=== PATIENT | male | born 1950 | race Caucasian/White ===

== ENCOUNTER 2019-10-14 18:48 | Emergency (ER) | payer MEDICARE, OTHER ==
[2019-10-14 19:01] VITALS: BP 141/61
--- NOTE | 2019-10-14 20:03 | ED Physician Documentation ---
PD HPI LOWER EXT INJURY - Stated complaint Stated Complaint: HEAD LAC - Chief complaint Chief Complaint: Laceration - History obtained from History obtained from: Patient - History of Present Illness PD HPI LOW EXT INJURY LOCATION: Other (69-year-old gentleman who is not up-to-date on tetanus was sitting on a short stool about a foot off the ground putting stuff away and the stool collapsed and he scraped his head on the table on the way down. He has no loss of consciousness. No headache. No nausea. Vision is fine. He is not confused at all. Not anticoagulated except for aspirin.) Where injury occurred: Home Timing - onset: Today Review of Systems Constitutional: reports: Reviewed and negative Throat: reports: Reviewed and negative Cardiac: reports: Reviewed and negative PD PAST MEDICAL HISTORY - Past Medical History Past Medical History: Yes Cardiovascular: Hypertension Respiratory: None Neuro: None Endocrine/Autoimmune: None GI: Colon polyps : Other HEENT: None Psych: None Musculoskeletal: Osteoarthritis Derm: None - Past Surgical History Past Surgical History: Yes General: Colonoscopy - Present Medications Home Medications: Ambulatory Orders Medication Instructions Recorded Confirmed Cholecalciferol (Vitamin D3) 1,000 units PO DAILY 08/15/14 08/15/14 [Vitamin D-3] Ciprofloxacin [Cipro] 500 mg PO DAILY 08/15/14 08/15/14 Lisinopril/Hydrochlorothiazide 1 tab PO DAILY 08/15/14 08/15/14 [Lisinopril-Hctz 20-25 mg Tab] Multivitamin [Multivitamins] 1 tab PO DAILY 08/15/14 08/15/14 Verapamil [Calan] 120 mg PO DAILY 08/15/14 08/15/14 metFORMIN [Glucophage] 500 mg PO DAILY 08/15/14 08/15/14 - Allergies Allergies/Adverse Reactions: Allergies Allergy/AdvReac Type Severity Reaction Status Date / Time No Known Drug Allergies Allergy Verified 08/15/14 08:08 - Social History Does the pt smoke?: No Smoking Status: Never smoker Does the pt drink ETOH?: No Does the pt have substance abuse?: No - Immunizations Immunizations are current?: No - POLST Patient has POLST: No PD ED PE NORMAL - Vitals Vital signs reviewed: Yes - General General: Alert and oriented X 3, No acute distress - HEENT HEENT: PERRL, EOMI, Other (There is 2 scrapes on the vertex of the scalp) - Neck Neck: Supple, no meningeal sign, No bony TTP - Neuro Neuro: Alert and oriented X 3, 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 We discussed CT imaging but I did not necessarily recommend it given the lack of significant symptoms and he is agreeable and understands signs and symptoms that would necessitate urgent reevaluation. Departure - Departure Disposition: 01 Home, Self Care Clinical Impression: Scalp abrasion Qualifiers: Encounter type: initial encounter Qualified Code(s): S00.01XA - Abrasion of scalp, initial encounter Condition: Good Record reviewed to determine appropriate education?: Yes Instructions: ED Abrasion Comments: If you develop headache, nausea, or other new or worrisome symptoms please return for reevaluation.
[2019-10-14] MEDS ORDERED: TETANUS/DIPHTHERIA/PERTUSSIS 0.5 ML SYRINGE IM ONE (20:17)
== END 2019-10-14 20:38 | disposition home or self-care (01) ==
LOC: ED 18:48
DX: S00.01XA Abrasion of scalp, initial encounter (principal); W22.03XA Walked into furniture, initial encounter; Y93.E9 Activity, other interior property and clothing maintenance; Y92.009 Unspecified place in unspecified non-institutional (private) residence as the place of occurrence of the external cause; I10 Essential (primary) hypertension
CPT/HCPCS: 90471; 99284

== ENCOUNTER 2023-12-31 19:07 | Outpatient (CLI) | payer MEDICARE, OTHER | END 2023-12-31 19:08 | disposition critical access hospital (66) | LOC: EMS 19:07 | DX: M54.9 Dorsalgia, unspecified (principal); M79.652 Pain in left thigh; M79.651 Pain in right thigh; M25.552 Pain in left hip; M25.551 Pain in right hip | CPT/HCPCS: A0425; A0429 ==

== ENCOUNTER 2023-12-31 19:40 | Emergency (ER) | payer MEDICARE, OTHER ==
--- NOTE | 2023-12-31 19:55 | ED Physician Documentation ---
PD HPI BACK PAIN - Stated complaint Stated Complaint: LOWER BACK PX - Chief complaint Chief Complaint: Back Pain - History obtained from History obtained from: Patient - Additional information Additional information: 73-year-old gentleman with history of type 2 diabetes and remote history of back issues necessitating physical therapy in a couple of months off of work "30 years ago." Over the last 3 days has developed low back pain. There is no injury. He has progressively lost function due to it. Pain is very mild at rest but if he tries to move his legs it is more severe and has developed right greater than left leg weakness. Denies numbness or saddle anesthesia. No incontinence of bowel or bladder. No fevers. PD PAST MEDICAL HISTORY - Past Medical History Cardiovascular: Hypertension Respiratory: None Neuro: None Endocrine/Autoimmune: None GI: Colon polyps : Other HEENT: None Psych: None Musculoskeletal: Osteoarthritis Derm: None - Past Surgical History Past Surgical History: Yes General: Colonoscopy - Present Medications Home Medications: Ambulatory Orders Medication Instructions Recorded Confirmed Cholecalciferol (Vitamin D3) 1,000 units PO DAILY 08/15/14 08/15/14 [Vitamin D-3] Ciprofloxacin [Cipro] 500 mg PO DAILY 08/15/14 08/15/14 Lisinopril/Hydrochlorothiazide 1 tab PO DAILY 08/15/14 08/15/14 [Lisinopril-Hctz 20-25 mg Tab] Multivitamin [Multivitamins] 1 tab PO DAILY 08/15/14 08/15/14 Verapamil [Calan] 120 mg PO DAILY 08/15/14 08/15/14 metFORMIN [Glucophage] 500 mg PO DAILY 08/15/14 08/15/14 - Allergies Allergies/Adverse Reactions: Allergies Allergy/AdvReac Type Severity Reaction Status Date / Time No Known Drug Allergies Allergy Verified 08/15/14 08:08 - Social History Does the pt smoke?: No Smoking Status: Never smoker Does the pt drink ETOH?: No Does the pt have substance abuse?: No - Immunizations Immunizations are current?: No - POLST Patient has POLST: No PD ED PE NORMAL - Vitals Vital signs reviewed: Yes - General General: Alert and oriented X 3, No acute distress - HEENT HEENT: PERRL, EOMI - Neck Neck: No bony TTP - Cardiac Cardiac: RRR, No murmur - Respiratory Respiratory: No respiratory distress, Clear bilaterally - Abdomen Abdomen: Normal bowel sounds, Soft, Non tender - Back Back: No spinal TTP - Derm Derm: Normal color, Warm and dry - Extremities Extremities: Other (He has a lot of pain with flexion of either leg at the hip but otherwise without limitation, the patient has equal and normal Achilles and patellar reflexes bilaterally. Normal sensation in all areas of the legs. Patient denies saddle anesthesia. Normal strength in flexion-extension at the ankles) - Neuro Neuro: Alert and oriented X 3, Normal speech Results - Vitals Vitals: Vital Signs - 24 hr 12/31/23 12/31/23 12/31/23 19:50 21:26 23:01 Temperature 36.6 C Heart Rate 83 71 61 Respiratory 14 18 16 Rate Blood Pressure 163/79 H 145/87 H 144/77 H O2 Saturation 99 97 95 Oxygen O2 Source Room air - Rads (name of study) CT of the lumbar spine Relevant Findings:: Final report received (Severe degenerative changes at L2-L3 resulting in moderate to severe spinal stenosis), EMP independent interpretation of test PD Medical Decision Making - ED course ED course: 73-year-old gentleman with acute bilateral lower extremity weakness associated with back pain. CT imaging demonstrates significant spinal stenosis at L2-L3 wh ich is likely causative. After the administration of Tylenol and Toradol he was really unable to walk except for a stepper to unassisted with a walker. He is a large man who lives alone as such is probably not a safe discharge and the search for a tertiary hospital with spine surgery available for consultation was begun at 9:[address] Toscano at 11pm shift chg pending hopeful xfer. Departure - Departure Disposition: 02 Transfer Acute Care Hosp Clinical Impression: Spinal stenosis of lumbar region Condition: Stable Discharge Date/Time: 01/01/24 02:45
[2023-12-31] MEDS: KETOROLAC 60 MG/2 ML VIAL IM STA (20:34)
[2023-12-31] MEDS: ACETAMINOPHEN 500 MG TABLET PO STA (20:34)
--- NOTE | 2023-12-31 21:04 | CT Report ---
PROCEDURE: Lumbar Spine WO INDICATIONS: Back pain BLE weak TECHNIQUE: Noncontrast 3 mm thick sections acquired from the T12 level to the sacrum. Sagittal and coronal refo rmats were constructed. For radiation dose reduction, the following was used: automated exposure co ntrol, adjustment of mA and/or kV according to patient size. COMPARISON: None. FINDINGS: Image quality: Excellent. Bones: Generalized osteopenia. There is normal bony alignment. No acute vertebral body compression fractures. No suspicious lytic or blastic bony lesions. Central spinal caliber is of normal overall caliber. No pars defects. T12-L1: Mild circumferential disc bulging, which is resulting in significant spinal canal stenosis o r neuroforaminal narrowing. L1-L2: Mild circumferential disc bulging and mild facet hypertrophy, which result in mild narrowin g of the spinal canal and mild bilateral neural foraminal narrowing. L2-L3: Moderate circumferential disc bulging with moderate bilateral facet hypertrophy and bucklin g of the ligamentum flavum. Findings result in moderate to severe narrowing of the spinal canal and m ild to moderate bilateral neural foraminal narrowing. L3-L4: Circumferential disc bulging with bilateral facet hypertrophy and buckling of the ligamentum flavum. Findings result in mild to moderate narrowing of the spinal canal as well as mild to moderat e right and mild left neural foraminal narrowing. L4-L5: Sequential disc bulging and bilateral facet hypertrophy and buckling of the ligamentum flavu m, which result in mild narrowing of the spinal canal as well as moderate bilateral neural foraminal narrowing. L5-S1: Mild circumferential disc bulging and mild bilateral facet hypertrophy, which do not result in significant spinal canal stenosis or neuroforaminal narrowing. Soft tissues: No retroperitoneal masses or hematomas. Visualized aorta is normal in caliber. Multi ple small calculi are seen in the dependent portion of the bladder. IMPRESSION: 1.At L2-3, degenerative changes result in moderate to severe narrowing of the central spinal canal as well as mild to moderate bilateral neuroforaminal narrowing. 2.Additional multifocal mild to moderate degenerative disc disease and facet hypertrophy as described in detail in the body of the report. No additional areas of high-grade spinal canal stenosis or high -grade neuroforaminal narrowing. 3.Multiple small bladder calculi. Reviewed by: Mann Upton MD on 12/31/2023 9:03 PM PDT Approved by: Mann Upton MD on 12/31/2023 9:03 PM PDT Station ID: [id number]
[2023-12-31] MEDS ORDERED: ACETAMINOPHEN 500 MG TABLET PO PRN (21:51)
[2023-12-31 23:03] VITALS: BP 144/77; O2SAT 95
[2023-12-31] MEDS: metFORMIN 500 MG TABLET PO SCH (23:24)
--- NOTE | 2023-12-31 23:58 | ED Physician Documentation ---
ED Addendum - Addendum Addendum: 12/31/23 23:55 d/w Dr. Radford, application development specialist at [facility] who agrees to transfer for MRI to [facility] ED. Disposition transfer Impression 1. back pain 2. lower extremity weakness 3. severe L2/3 stenosis Condition stable 12/31/23 23:58
[2024-01-01] MEDS ORDERED: PANTOPRAZOLE 40 MG TABLET PO SCH (07:00)
[2024-01-01] MEDS ORDERED: ATORVASTATIN 10 MG TABLET PO SCH (09:00)
[2024-01-01] MEDS ORDERED: TAMSULOSIN 0.4 MG CAPSULE PO SCH (09:00)
[2024-01-01] MEDS ORDERED: hydroCHLOROthiazide 25 MG TABLET PO SCH (09:00)
[2024-01-01] MEDS ORDERED: VERAPAMIL ER 120 MG TABLET PO SCH (09:00)
[2024-01-01] MEDS ORDERED: lisinopriL 20 MG TABLET PO SCH (09:00)
== END 2024-01-01 02:45 | disposition short-term general hospital (02) ==
LOC: EDUNIT# → ED 19:40
DX: M48.061 Spinal stenosis, lumbar region without neurogenic claudication (principal); I10 Essential (primary) hypertension; E11.9 Type 2 diabetes mellitus without complications; Z79.84 Long term (current) use of oral hypoglycemic drugs
CPT/HCPCS: 72131; 96372; 99285; A9270

== ENCOUNTER 2024-01-05 16:58 | Outpatient (CLI) | payer MEDICARE, OTHER | END 2024-01-05 23:59 | disposition short-term general hospital (02) | LOC: EMS 16:58 | DX: R53.1 Weakness (principal) | CPT/HCPCS: A0425; A0429; A0888 ==